=== PATIENT | female | born 1935 | race Caucasian/White ===

== ENCOUNTER 2016-08-22 19:36 | Emergency (ER) | payer MEDICARE, OTHER ==
[2016-08-22] MEDS ORDERED: ACETAMINOPHEN 325 MG TABLET PO ONE (21:38)
[2016-08-23 00:46] VITALS: BP 182/76
[2016-08-23] MEDS ORDERED: LIDOCAINE 5% (700 MG) TRANSDERMAL ADH..PATCH TP ONE (01:11)
--- NOTE | 2016-08-23 01:13 | ER Document Report ---
ED General - General Chief Complaint: Fall Injury Stated Complaint: FALL/LOWER BACK PAIN Notes: Patient is an 81-year-old female who presents after having a mechanical fall just prior to arrival. States that she stood up from the couch and "got tangled up in my own feet". This resulted in her falling and hitting her back directly on a door. States that she began to experience an immediate, dull, constant, throbbing pain. States she received Tylenol in triage and this has moderately improved her pain. Nothing worsens the pain. No history of similar injury in the past. She has not seen her primary care doctor regarding today's concerns. She denies any associated weakness, numbness, difficulty with ambulation, bowel or bladder incontinence, or urinary retention. TRAVEL OUTSIDE OF THE [place] IN LAST 30 DAYS: No - Related Data Allergies/Adverse Reactions: codeine [Codeine] Allergy (Mild, Verified 09/20/14 16:28) Nausea oxycodone [Oxycodone] Allergy (Mild, Verified 09/20/14 16:28) Nausea Past Medical History - General Information source: Patient - Social History Smoking Status: Never Smoker Frequency of alcohol use: None Drug Abuse: None Lives with: Spouse/Significant other Family History: Reviewed & Not Pertinent Patient has suicidal ideation: No Patient has homicidal ideation: No - Past Medical History Cardiac Medical History: Reports: Hx Hypertension Denies: Hx Coronary Artery Disease, Hx Heart Attack Pulmonary Medical History: Reports: Hx Bronchitis Denies: Hx Asthma, Hx COPD, Hx Pneumonia Neurological Medical History: Denies: Hx Cerebrovascular Accident, Hx Seizures Renal/ Medical History: Denies: Hx Peritoneal Dialysis Musculoskeltal Medical History: Reports Hx Arthritis - Hip Replacement Past Surgical History: Reports: Hx Hysterectomy, Hx Pacemaker - Immunizations Hx Diphtheria, Pertussis, Tetanus Vaccination: No Hx Pneumococcal Vaccination: 05/03/14 Review of Systems - Review of Systems Notes: Constitutional: Negative for fever. Eyes: Negative for visual changes. ENT: Negative for facial injury Cardiovascular: Negative for chest injury. Respiratory: Negative for shortness of breath. Gastrointestinal: Negative for abdominal injury. Genitourinary: Negative for genital injury Musculoskeletal: Positive for back injury. Skin: Negative for laceration/abrasions. Neurological: Negative for head injury. Physical Exam - Vital signs Vitals: Temp Pulse Resp BP Pulse Ox 98 F 69 16 187/87 H 94 04/22/17 20:58 08/22/16 20:58 08/22/16 20:58 08/22/16 20:58 08/22/16 20:58 Interpretation: Hypertensive Notes: PHYSICAL EXAMINATION: GENERAL: Well-appearing, no acute distress. HEAD: Atraumatic, normocephalic. EYES: Pupils equal round and reactive to light, extraocular movements intact, sclera anicteric, conjunctiva are normal. ENT: nares patent, no oral pharyngeal trauma. No hemotympanum, no Cuadra's sign , no raccoon eyes. NECK: No midline cervical spine tenderness. Patient able to move their head to 45 bilaterally without any discomfort. LUNGS: Breath sounds clear to auscultation bilaterally and equal. No wheezes rales or rhonchi. HEART: Regular rate and rhythm without murmurs. CHEST WALL: No ecchymosis over the chest wall. ABDOMEN: Soft, nontender, normoactive bowel sounds. No guarding, no rebound. No seatbelt sign. EXTREMITIES: Normal range of motion, no pitting or edema. No long bone deformities. BACK: Point tenderness over the L1 to region with associated diffuse bilateral kaleb-spinous muscle tenderness NEUROLOGICAL: 5 out of 5 strength both distally and proximally bilateral lower extremities. 2+ patellar reflexes bilaterally. No clonus. Sensation grossly intact in the bilateral lower extremities. Patient is able to ambulate without difficulty. PSYCH: Normal mood, normal affect. SKIN: Warm, Dry, normal turgor, no rashes or lesions noted. Course - Re-evaluation Re-evalutation: 08/23/16 01:11 Presentation of a well appearing patient complaining of acute back pain after a fall. No r systemic symptoms including fevers, chills, weight loss, history of recent bacterial infection, bilateral symptoms, numbness, weakness, difficulty walking, urinary retention or bowel incontinence, personal history of cancer, immunosuppression, diabetes, known AAA, or history of IV drug use. Pain started after a fall with direct trauma to the back. Exam does show diffuse kaleb-lumbar spine tenderness and point tenderness over L1-2. NO pulsatile abdominal mass, and patient has symmetric and intact lower extremity strength, sensation, and reflexes without clonus. 2+ symmetric medial malleolar and dorsalis pedis pulses Based on history and physical, I have a very low suspicion of a concerning etiology of pain including epidural compression syndrome, spinal infection, transverse myelitis, malignancy, abdominal aortic aneurysm, renal colic, acute lower extremity claudication, neurogenic claudication, ankylosing spondylitis, or other intra-abdominal process. However, given her age and focal pain will obtain CT of the L-spine 08/23/16 02:03 CT of the lumbar spine does demonstrate a L1 endplate compression fracture without vertebral body loss of height or canal intrusion. Patient remains without neurologic deficits.At this time will discharge with return precautions and follow-up recommendations. Verbal discharge instructions given a the bedside and opportunity for questions given. Medication warnings reviewed. Patient is in agreement with this plan and has verbalized understanding of return precautions and the need for primary care follow-up in the next 24-72 hours. - Vital Signs Vital signs: Temp Pulse Resp BP Pulse Ox 98 F 63 18 182/76 H 95 08/22/16 20:58 08/23/16 00:42 08/23/16 00:42 08/23/16 00:42 08/23/16 00:42 - Diagnostic Test Radiology reviewed: Reports reviewed Discharge - Discharge Clinical Impression: Fracture of L1 vertebra Qualifiers: Encounter type: initial encounter Fracture type: closed Fracture morphology: other fracture Qualified Code(s): S32.018A - Other fracture of first lumbar vertebra, initial encounter for closed fracture Condition: Good Disposition: HOME, SELF-CARE Additional Instructions: You have been seen in the Emergency Department (ED) today for back pain. Your CT scan shows a small fracture of your L1 vertebra that should not cause any major problems other than pain going forward. However you should follow-up with orthopedic surgery for complete follow-up. Take Tylenol 1000 mg every 6 hours as needed for pain. You should also purchase a local lidocaine cream such as "aspercreme with lidocaine" and use per bottle instructions to the affected area. Apply heat to the area as often as you are able. Continue to keep active and avoid prolonged periods of bed rest. Please follow up with your doctor as soon as possible regarding today's ED visit and your back pain. Return to the ED for worsening back pain, fever, weakness or numbness of either leg, or if you develop either (1) an inability to urinate or have bowel movements, or (2) loss of your ability to control your bathroom functions (if you start having "accidents"), or if you develop other new symptoms that concern you.concern you. Referrals: NAN NUR MD [Primary Care Provider] - Follow up as needed LAVONNE RIGGINS MD [ACTIVE STAFF] - Follow up in 1 week
== END 2016-08-23 02:27 | disposition home or self-care (01) ==
LOC: ER 19:36
DX: S32.018A Other fracture of first lumbar vertebra, initial encounter for closed fracture (principal); M54.5 Low back pain; W18.09XA Striking against other object with subsequent fall, initial encounter
CPT/HCPCS: 99284; 72131; A9270

== ENCOUNTER → 2017-02-06 | Outpatient (CLI) | payer MEDICARE, OTHER ==
--- NOTE | 2017-02-06 08:35 | RADIOLOGY REPORT (SQ) ---
EXAM DESCRIPTION: CT LUMBAR SPINE WITHOUT COMPLETED DATE/TIME: 02/06/2017 8:17 am REASON FOR STUDY: LOW BACK PAIN/ THORACIC SPINE PAIN M54.5 LOW BACK PAIN M54.6 PAIN IN THORACIC SP INE COMPARISON: 08/23/2016 TECHNIQUE: Axial images acquired through the lumbar spine without intravenous contrast. Images revi ewed with lung, soft tissue and bone windows. Reconstructed coronal and sagittal MPR images reviewed . All images stored on PACS. All CT scanners at this facility use dose modulation, iterative reconstruction, and/or weight based d osing when appropriate to reduce radiation dose to as low as reasonably achievable (ALARA). [facility]: Dose Right [facility]: CareDose [facility]: Dose Right [facility]: Teradose 4D [facility]: [employer] RADIATION DOSE: mGy. LIMITATIONS: None. FINDINGS: SEGMENTATION: Normal. No transitional anatomy. ALIGNMENT: Stable alignment and curvature. VERTEBRAL BODIES: The patient is status post vertebroplasty of previously identified L1 vertebral bod y compression fracture. There has been slight interval increase in degree of compression with [place] retropulsion resulting in at least moderate spinal canal stenosis and possibly impingement of the conus. Canal measures approximately 7 mm at this level. DISCS: Stable degree of multilevel degenerative disc disease. PEDICLES, TRANSVERSE PROCESSES: No fractures. No dislocation. No acute findings. FACETS, POSTERIOR ELEMENTS: Stable degree of facet arthropathy. No fractures. No dislocation. No a dditional spinal stenosis. HARDWARE: None in the spine. VISUALIZED RIBS: No fractures. SOFT TISSUES: No significant or acute finding in adjacent soft tissues. OTHER: No other significant finding. IMPRESSION: STATUS POST L1 VERTEBROPLASTY WITH FURTHER LOSS OF HEIGHT AND NEW BONY RETROPULSION RESU LTING IN AT LEAST MODERATE SPINAL CANAL STENOSIS AND POSSIBLE IMPINGEMENT OF THE [place]. RECOMMEND CO RRELATION WITH ANY SYMPTOMS OF CAUDA EQUINA. CONSIDER SURGICAL CONSULTATION AND FURTHER EVALUATION W ITH CT MYELOGRAM PATIENT IS NOTED TO HAVE A PACER. TECHNICAL DOCUMENTATION: JOB ID: [id number] Android App Review Source [id number]: Final reports with documentation of one or more dose reduction techniques (e.g., Automate d exposure control, adjustment of the mA and/or kV according to patient size, use of iterative recons truction technique) 2010 [employer]- All Rights Reserved
--- NOTE | 2017-02-06 08:40 | RADIOLOGY REPORT (SQ) ---
EXAM DESCRIPTION: CT THORACIC SPINE WITHOUT COMPLETED DATE/TIME: 02/06/2017 8:17 am REASON FOR STUDY: LOW BACK PAIN/ THORACIC SPINE PAIN M54.5 LOW BACK PAIN M54.6 PAIN IN THORACIC SP INE COMPARISON: None. TECHNIQUE: Axial images acquired through the thoracic spine without intravenous contrast. Images re viewed with lung, soft tissue and bone windows. Reconstructed coronal and sagittal MPR images review ed. Images stored on PACS. All CT scanners at this facility use dose modulation, iterative reconstruction, and/or weight based d osing when appropriate to reduce radiation dose to as low as reasonably achievable (ALARA). [facility]: Dose Right [facility]: CareDose [facility]: Dose Right [facility]: Teradose 4D [facility]: Smart [employer] RADIATION DOSE: Up-to-date CT equipment and radiation dose reduction techniques were employed. CTDIv ol: 20.2 mGy. DLP: 687 mGy-cm. mGy. LIMITATIONS: None. FINDINGS: VISUALIZED LUNGS: No acute opacities. No pneumothorax. SOFT TISSUES: No soft tissue swelling. No masses. VERTEBRAL BODIES: No fractures. No dislocation. No acute findings. DISCS: Degenerative disc disease at multiple levels. ALIGNMENT: Normal. Mild to moderate levoscoliosis at the thoracolumbar junction. TRANSVERSE PROCESSES, POSTERIOR ELEMENTS: Hypertrophic osteophytes at multiple levels. HARDWARE: None in the spine. VISUALIZED RIBS: No fractures. OTHER: No other significant finding. IMPRESSION: CHRONIC DEGENERATIVE CHANGES OF THE THORACIC SPINE WITHOUT ACUTE FRACTURE. PLEASE SEE SEPARATE CT REPORT OF THE LUMBAR SPINE REGARDING L1 LEVEL. TECHNICAL DOCUMENTATION: JOB ID: [id number] Quality ID # [id number]: Final reports with documentation of one or more dose reduction techniques (e.g., Au tomated exposure control, adjustment of the mA and/or kV according to patient size, use of iterative reconstruction technique) 2010 [employer]- All Rights Reserved
== END ==
LOC: RAD 07:44
PROVIDERS: ATTEND Orthopaedic Surgery Sports Medicine
DX: M54.5 Low back pain (principal); M54.6 Pain in thoracic spine
CPT/HCPCS: 72128; 72131